=== PATIENT | female | born 1975 | race Caucasian/White ===

== ENCOUNTER 2018-02-09 14:13 | Emergency (ER) | payer MEDICAID ==
[~2018-02-09] VITALS: Ht 162.6 cm; Wt 60.8 kg
[~2018-02-09 14:13] MED LIST: OXYC-130 PO
[2018-02-09 14:17] VITALS: BP_SYST 115
[2018-02-09 15:06] VITALS: BP_SYST 115
== END 2018-02-09 15:06 | disposition home or self-care (01) ==
LOC: SED 14:13
DX: S63.502A Unspecified sprain of left wrist, initial encounter (principal); K21.9 Gastro-esophageal reflux disease without esophagitis; F41.9 Anxiety disorder, unspecified; Z90.49 Acquired absence of other specified parts of digestive tract; W01.0XXA Fall on same level from slipping, tripping and stumbling without subsequent striking against object, initial encounter; Y93.89 Activity, other specified; Y92.89 Other specified places as the place of occurrence of the external cause; Y99.8 Other external cause status
CPT/HCPCS: 99284

== ENCOUNTER 2018-10-23 19:52 | Emergency (ER) | payer MEDICAID ==
--- NOTE | 2018-10-23 20:06 | NUR ---
Called from waiting room, no answer
--- NOTE | 2018-10-23 20:11 | NUR ---
Patient called for a second time, patient not seen in ER hallway, ER lobby, or ER entrance.
--- NOTE | 2018-10-23 20:16 | NUR ---
Patient called for a third time, patient not seen in ER hallway, ER lobby, or ER entrance. Patient LWBS.
== END 2018-10-23 20:16 | disposition left against medical advice (07) ==
LOC: SED 19:52
DX: R10.9 Unspecified abdominal pain (principal); Z53.21 Procedure and treatment not carried out due to patient leaving prior to being seen by health care provider

== ENCOUNTER 2018-10-24 12:24 | Emergency (ER) | payer MEDICAID ==
--- NOTE | 2018-10-24 12:30 | NUR ---
Patient to ER bed 08 to gown for evaluation. Side rails up.
--- NOTE | 2018-10-24 12:32 | NUR ---
Pt brought by self, A&Ox4, pt presents to ER with L flank pain, N/V , frequency and burning with urination , skin pink and warm, afebrile, respirations even and unlabored, VSS, will cont to monitor.
[2018-10-24] MEDS ORDERED: NACL 0.9% 1,000 ML IV ONE (12:36)
[2018-10-24] MEDS ORDERED: ONDANSETRON HCL 4 MG/2 ML VIAL IVP ONE (12:45)
--- NOTE | 2018-10-24 12:45 | NUR ---
Dr Cole at bedside examining patient
[2018-10-24 12:50] LABS: BILIRUBIN,URINE NEGATIVE (NEGATIVE); BLOOD, URINE 3+ (NEGATIVE); CLARITY/URINE HAZY (CLEAR); COLOR,URINE YELLOW (YELLOW); GLUCOSE,URINE NEGATIVE (NEGATIVE); KETONES,URINE NEGATIVE (NEGATIVE); LEUKOCYTE ESTERASE ,URINE 3+ (NEGATIVE); NITRITE, URINE POSITIVE (NEGATIVE); PH,URINE 8.5 (5.0-8.0); PROTEIN URINE 2+ (NEGATIVE)
[2018-10-24 13:11] LABS: BACTERIA,URINE MODERATE /HPF (None Seen); RBC,URINE 50-80 /HPF (0-3); WBC,URINE 80-100 /HPF (0-3)
[2018-10-24 13:12] LABS: MUCUS,URINE 1+ /LPF (None Seen)
[2018-10-24] MEDS ORDERED: KETOROLAC TROMETHAMINE 30 MG VIAL IVP ONE (13:15)
[2018-10-24 13:16] LABS: BASOPHILS % (AUTO) 0.2 % (0.0-2.0); HEMATOCRIT 37.7 % (36-48); HEMOGLOBIN 12.6 g/dL (12.0-16.0); LYMPHOCYTES # (AUTO) 0.9 K/uL (1.0-5.5); LYMPHOCYTES % (AUTO) 6.7 % (20.5-51.5); MEAN CORPUSCULAR HEMOGLOBIN 32 pg (27-31); MEAN CORPUSCULAR HGB CONC 34 % (32-36); MEAN CORPUSCULAR VOLUME 95 fL (79.0-98.0); MONOCYTES # (AUTO) 0.5 K/uL (0.0-1.0); MONOCYTES % (AUTO) 4.1 % (1.7-9.3); NEUTROPHILS # (AUTO) 11.9 K/uL (1.8-7.7); PLATELET COUNT (AUTO) 228 K/uL (130-430); RED BLOOD CELL COUNT(AUTO) 3.96 MIL/uL (4.2-6.2); RED CELL DISTRIBUTION WIDTH 13.1 % (9.0-15.0); WHITE BLOOD COUNT (AUTO) 13.3 K/uL (4.8-10.8)
[2018-10-24 13:36] LABS: CALCIUM 9.2 mg/dL (8.4-11.0); CREATININE 0.79 mg/dL (0.55-1.30); POTASSIUM 3.8 mmol/L (3.5-5.1)
[2018-10-24 13:37] LABS: INR 1.1 (0.8-1.2); PROTHROMBIN TIME 10.9 SECS (9.5-12.5)
[2018-10-24 13:41] LABS: ALBUMIN 3.6 g/dL (3.4-4.8); TOTAL BILIRUBIN 0.7 mg/dL (0.0-1.0)
--- NOTE | 2018-10-24 13:45 | NUR ---
Pt off the unit for CT.
[2018-10-24] MEDS ORDERED: NACL 0.9% 2,000 ML IV ONE (14:15)
[2018-10-24] MEDS ORDERED: cefTRIAXone 1 GM IVPB PREMIX 50 ML IV ONE (14:15)
--- NOTE | 2018-10-24 14:45 | NUR ---
PT on kindramary speaking to her son. PT advised that her pain has gone down 10 from 01/28/. PT is not presenting any signs of acute distress.
--- NOTE | 2018-10-24 15:30 | NUR ---
Patient resting quietly in no acute distress, IV fluids infusing without difficulty, no redness or swelling noted at site. Awaiting IV fluids to finish and will then discharge. Family remains at bedside.
[2018-10-24 16:30] VITALS: BP_SYST 100
--- NOTE | 2018-10-24 16:30 | NUR ---
Patient given written and verbal discharge instructions and verbalizes understanding. ER MD discussed with patient the results and treatment provided. Patient in stable condition. ID arm band removed. IV catheter removed intact and dressing applied, no active bleeding. Rx of Tylenol with Codeine, Pyridium, Keflex given. Patient educated on pain management and to follow up with PMD. Pain Scale 0. Opportunity for questions provided and answered. Medication side effect fact sheet provided. Patient left ER in no acute distress, able to ambulate without difficulty with slow, steady gait with family at her side. No adverse reaction noted to medication.
--- NOTE | 2018-10-26 13:58 | NUR ---
Final C & S report reviewed identified organism is resistant to Keflex as previously prescribed. Patient was contacted and reports flank pain, N/V, and fever. Julisa WIPER [employer]ER was advised of this. New Rx for Cipro 500mg PO Bid (20), Motrin 600mg PO Tid PRN pain (30), Zofran 4mg SL PRN N/V (20) was called to [facility] on [address] per Julisa WIPER BLENDER. Patient was advised to discontinue Tylenol with codeine to help with nausea and proceed to ER if symptoms worsen.
== END 2018-10-24 16:30 | disposition home or self-care (01) ==
LOC: SED 12:24
DX: N12 Tubulo-interstitial nephritis, not specified as acute or chronic (principal); F41.9 Anxiety disorder, unspecified; Z90.49 Acquired absence of other specified parts of digestive tract; Z79.899 Other long term (current) drug therapy
CPT/HCPCS: 36415; 71045; 74176; 80053; 81000; 81025; 82150; 83605; 83690; 85025; 85610; 85730; 87040; 87086; 87186; 96361; 96365; 96375; 99284; J0696; J1885; J2405; J7030